=== PATIENT | female | born 1945 | race Caucasian/White ===

== ENCOUNTER → 2017-05-27 | Outpatient (CLI) | payer MEDICARE ==
[2017-05-27 11:33] LABS: Blood Urea Nitrogen 12 mg/dL (7-17)
--- NOTE | 2017-05-27 13:41 | CT ---
EXAMINATION TYPE: CT ChestAbdPelvis w con DATE OF EXAM: 05/27/2017 COMPARISON: NONE HISTORY: Abnormal weight loss CT DLP: 550.1 mGycm. Automated Exposure Control for Dose Reduction was Utilized. CONTRAST: CT scan of the thorax, abdomen and pelvis is performed with IV Contrast, patient injected with 100 mL of Omnipaque 300. FINDINGS: LUNGS: Coarse right basilar calcified pleural plaques are seen along the pleural border of the right hemidiaphragm in addition to right basilar atelectasis. Focal area of tree-in-bud opacity within the right middle lobe is seen on series 4 image 29 peripherally. The lungs are grossly clear, there is no concerning parenchymal mass or nodule identified. There is no pleural effusion or pneumothorax see n. The tracheobronchial tree is patent. MEDIASTINUM: There are no greater than 1 cm hilar or mediastinal lymph nodes. No pericardial effusi on is seen. Mild coronary calcifications are noted. LIVER/GB: Gallbladder surgically absent. Liver is grossly unremarkable. PANCREAS: No significant abnormality is seen. No pancreatic ductal dilatation. SPLEEN: The spleen is enlarged measuring 16.1 cm in craniocaudal dimension. Small splenule is also se en adjacent to the teller spleen. ADRENALS: No significant abnormality is seen. KIDNEYS: Wedge-shaped parenchymal scarring is seen within the right upper pole of the kidney with cor tical atrophy and retraction. Otherwise the kidneys enhance symmetrically. No evidence of hydronephro sis. BOWEL: Prominent haustral markings are seen within the ascending colon. Moderate amount retained colo bubba stool is noted throughout the descending, sigmoid and transverse colon. No evidence of bowel dila tation to suggest obstruction. GENITAL ORGANS: Uterus is atrophic and there is pelvic floor relaxation. LYMPH NODES: No greater than 1cm abdominal or pelvic lymph nodes are appreciated. Few prominent but n onenlarged central mesenteric lymph nodes are seen measuring up to 7 mm in short axis. OSSEOUS STRUCTURES: Degenerative changes are seen in the glenohumeral joints, femoral acetabular join ts and spine. These are all mild to moderate in degree. OTHER: Moderate calcific atheromatous changes are seen of the abdominal aorta and its branches. IMPRESSION: 1. No solid visceral mass to raise concern for primary neoplasm. 2. Suboptimal evaluation of the bowel due to moderate colonic stool burden and incomplete passage of contrast. Therefore given the patient's symptoms of nonspecific weight loss consider colonoscopy if n ot recently performed. 3. Splenomegaly of undetermined etiology. 4. Calcific pleural plaquing of the right hemithorax may relate to prior asbestos exposure. No pulmon matt mass.
== END | disposition home or self-care (01) ==
LOC: RADCTMAIN 10:37
PROVIDERS: ATTEND Internal Medicine Hematology & Oncology
DX: J92.9 Pleural plaque without asbestos (principal); R16.1 Splenomegaly, not elsewhere classified; R63.4 Abnormal weight loss; Z88.0 Allergy status to penicillin
CPT/HCPCS: 82565; 84520; 71260; 74177; 36415; Q9967

== ENCOUNTER → 2018-01-27 | Outpatient (CLI) | payer MEDICARE ==
--- NOTE | 2018-01-28 10:32 | MM ---
Reason for exam: screening (asymptomatic). Last mammogram was performed 2 years and 5 months ago. History: Patient is postmenopausal. Family history of breast cancer in maternal aunt at age 60 and breast cancer in maternal aunt at age 70. Physical Findings: A clinical breast exam by your physician is recommended on an annual basis and results should be correlated with mammographic findings. MG 3D Screening Mammo W/Cad Bilateral CC and MLO view(s) were taken. Technologist: RT Benji (R)(M) Prior study comparison: September 02, 2015, bilateral MG 3d screening mammo w/cad. August 23, 2014, bilateral MG diagnostic mammo w CAD [facility]. The breast tissue is heterogeneously dense. This may lower the sensitivity of mammography. Finding: There are typically benign round, regional calcifications in the upper outer quadrant, posterior position of the left breast. There is no discrete abnormality. Benign vascular calcifications right breast. ASSESSMENT: Benign, BI-RAD 2 RECOMMENDATION: Routine screening mammogram of both breasts in 1 year.
== END ==
LOC: RADMAMWWP 09:32
PROVIDERS: ATTEND Family Medicine
DX: Z12.31 Encounter for screening mammogram for malignant neoplasm of breast (principal)
CPT/HCPCS: 77063; 77067